=== PATIENT | female | born 1955 | race Caucasian/White ===

== ENCOUNTER 2019-03-16 20:19 | Emergency (ER) | payer SELFPAY ==
[~2019-03-16] VITALS: Ht 162.6 cm; Wt 56.2 kg
[2019-03-16 20:45] VITALS: BP 132/77
--- NOTE | 2019-03-16 20:45 | NUR ---
ED Nurse Note: Patient walked in to ER c/o left wrist pain 01/24. States that felt today 2-3 hrs ago. Patient presented with swolen left wrist, AAO x4, VSS at this time, skin warm to touch.
[2019-03-16] MEDS ORDERED: HYDROcodone/Acetamin 5/325 tab ORAL ONE (21:15)
[2019-03-16] MEDS ORDERED: HYDROCODON-ACE1 EA15 ORAL (21:42)
[2019-03-16] MEDS ORDERED: IBUPROFEN600 MG ORAL (21:42)
--- NOTE | 2019-03-16 21:42 | Emergency Room Report ---
History of Present Illness General Chief Complaint: Upper Extremity Injury Source: Patient Present Illness HPI This is a 63-year-old female who is right-hand dominant. She has no significant past medical history. She presents with chief complaint of a fall with left wrist pain. This occurred a couple hours prior to arrival. She tripped and fell on outstretched hand. No other injury. Did not pass out. Pain is 7 out of 10. Worse with movement. Better with rest. Denies any other injury. She does not want any pain medication. Allergies: Coded Allergies: No Known Allergies (Unverified , 03/16/19) Patient History Past Medical History: see triage record, old chart reviewed Past Surgical History: none Pertinent Family History: none Social History: Denies: smoking Now: No Immunizations: other Reviewed Nursing Documentation: PMH: Agreed; PSxH: Agreed Nursing Documentation-PMH Past Medical History: No Stated History Review of Systems Eye: Denies: eye pain, blurred vision ENT: Denies: ear pain, nose congestion, throat swelling Respiratory: Denies: cough, shortness of breath Cardiovascular: Denies: chest pain, palpitations Gastrointestinal: Denies: abdominal pain, diarrhea, nausea, vomiting Musculoskeletal: Reports: joint pain; Denies: back pain Skin: Denies: rash Neurological: Denies: headache, numbness Endocrine: Denies: increased thirst, increased urine Hematologic/Lymphatic: Denies: easy bruising All Other Systems: negative except mentioned in HPI Physical Exam Vital Signs Date Time Temp Pulse Resp B/P (MAP) Pulse Ox O2 Delivery O2 Flow Rate FiO2 03/16/19 20:37 98.4 103 18 132/77 (95) 99 Room Air Vitals normal Sp02 EP Interpretation: reviewed, normal General Appearance: well appearing, no apparent distress, alert Head: normocephalic, atraumatic Eyes: bilateral eye PERRL, bilateral eye EOMI ENT: hearing grossly normal, normal pharynx Neck: full range of motion, supple, no meningismus Respiratory: chest non-tender, lungs clear, normal breath sounds Cardiovascular #1: regular rate, rhythm, no murmur Gastrointestinal: normal bowel sounds, non tender, no mass, no organomegaly, no bruit, non-distended Musculoskeletal: back normal, normal range of motion, other - Left wrist: She has tenderness to the distal radius and ulnar. Mild edema but no deformity. Pulse normal. Psychiatric: mood/affect normal Procedures Splinting Splinting : Consent: Verbal Location: Wrist, left Hand-Made Type: plaster Splint: sugar-tong Pre-Proc Neuro Vasc Exam: normal Post-Proc Neuro Vasc Exam: normal Patient Tolerated: Well Complications: None Medical Decision Making Diagnostic Impression: Primary Impression: Distal radius fracture, left Qualified Codes: S52.572A - Other intraarticular fracture of lower end of left radius, initial encounter for closed fracture Additional Impression: Ulna styloid fracture, closed Qualified Codes: S52.615A - Nondisplaced fracture of left ulna styloid process , initial encounter for closed fracture ER Course This patient presents with a distal radius fracture and ulnar styloid fracture. Patient did not want any pain medication. Patient splinted and will be discharged home. Orthopedic follow-up given. Other X-Ray Diagnostic Results Other X-Ray Diagnostic Results : X-Ray ordered: x-rays left wrist # of Views/Limited Vs Complete: 3 View Indication: Pain Interpretation: no dislocation, no soft tissue swelling, other - Intra- articular distal radius fracture. Ulnar styloid fracture. Impression: Other - distal radius frx, ulnar styloid frx Electronically Signed by: Lex Card MD Last Vital Signs Date Time Temp Pulse Resp B/P (MAP) Pulse Ox O2 Delivery O2 Flow Rate FiO2 03/16/19 20:37 98.4 103 18 132/77 (95) 99 Room Air Status: improved Disposition: HOME, SELF-CARE Condition: Stable Scripts Ibuprofen* (MOTRIN*) 600 Mg Tablet 600 MG ORAL THREE TIMES A DAY, #30 TAB 0 Refills Prov: Lex Card MD 03/16/19 Hydrocodone/Acetaminophen 5-325* (HYDROCODONE/ACETAMINOPHEN 5-325*) 1 Each Tablet 1 TAB ORAL Q6H PRN for For Pain, #10 TAB 0 Refills Prov: Lex Card MD 03/16/19 Additional Instructions: Elevate wrist. Ice pack to the area. Follow-up with orthopedic doctor within a week for reevaluation. Return if symptoms worsen. Lex Card MD Mar 16, 2019 21:42
[2019-03-16 22:52] VITALS: BP 132/77
--- NOTE | 2019-03-16 22:53 | NUR ---
ED Nurse Note: Pt cleared by health care Provider for discharge. DC instructions/prescription was given and explained to pt and verbalized understanding of teachings. All medical deviecs such as ID band removed. Pt is AAO x4, ambulatory and left with all personal belongings.
--- NOTE | 2019-03-17 14:48 | Diagnostic Imaging Report ---
Clinical Indication:Pain and trauma Technique: 3 views of the left wrist Comparison: None Findings: There is a comminuted fracture of the distal radius. This is minimally displaced, slightly impacted. There is an associated fracture of the ulnar styloid. No carpal fracture demonstrated. Impression: Positive for distal radial and ulnar styloid fracture This agrees with the preliminary interpretation reported by the emergency room physician in the electronic medical record
== END 2019-03-16 22:48 | disposition home or self-care (01) ==
LOC: EMR 21:03
DX: S52.572A Other intraarticular fracture of lower end of left radius, initial encounter for closed fracture (principal); S52.615A Nondisplaced fracture of left ulna styloid process, initial encounter for closed fracture; W01.0XXA Fall on same level from slipping, tripping and stumbling without subsequent striking against object, initial encounter; Y92.9 Unspecified place or not applicable
CPT/HCPCS: 29125; 99283